=== PATIENT | female | born 1970 ===

== ENCOUNTER 2016-08-20 17:01 | Emergency (ER) | payer OTHER ==
--- NOTE | 2016-08-20 17:27 | ED PDOC ---
Arrival/HPI - General Time Seen by Provider: 08/20/16 17:25 Historian: Patient - History of Present Illness Narrative History of Present Illness (Text): 08/20/16 17:26 This 46 yo female with pmh htn, migraines, presents to this ED exacerbation of migraines since this morning. Patient feels mild nauseous, and has vomited today. Patient denies abdominal pain, sob, cp, dysarthria, diplopia, dizziness , abnormal gait, diarrhea, or urinary symptoms. Time/Duration: Other (since this morning) Context: Home Past Medical History - Provider Review Nursing Documentation Reviewed: Yes Family/Social History - Physician Review Nursing Documentation Reviewed: Yes Family/Social History: No Known Family HX Allergies/Home Meds Allergies/Adverse Reactions: Allergies iodine Allergy (Verified 08/20/16 17:34) ANAPHYLAXIS seafood Allergy (Uncoded 08/20/16 17:34) ANAPHYLAXIS Home Medications: Home Meds Medication Instructions Recorded Confirmed Acetaminophen/Butalbital/Caf 08/20/16 [Fioricet] Atorvastatin [Lipitor] 08/20/16 Metoprolol Succinate [Metoprolol 08/20/16 Succinate] Ondansetron ODT [Zofran ODT] 08/20/16 Review of Systems - Review of Systems Constitutional: Normal. absent: Fatigue, Weight Change, Fevers, Night Sweats Eyes: Photophobia. absent: Vision Changes, Eye Pain ENT: Normal. absent: Sore Throat, Rhinorrhea Respiratory: Normal. absent: SOB, Cough, Sputum, Wheezing Cardiovascular: Normal. absent: Chest Pain, Palpitations Gastrointestinal: Nausea, Vomiting. absent: Abdominal Pain Genitourinary Female: Normal. absent: Dysuria, Frequency, Hematuria, Vaginal Bleeding, Vaginal Discharge Musculoskeletal: Normal. absent: Back Pain Skin: Normal. absent: Rash Neurological: Headache. absent: Dizziness, Focal Weakness, Gait Changes, Speech Changes, Facial Droop, Disequilibrium, Seizure Endocrine: Normal Hemo/Lymphatic: Normal Psychiatric: Normal Physical Exam Vital Signs Temp Pulse Resp BP Pulse Ox 08/20/16 19:57 98.6 F 78 18 148/82 99 08/20/16 19:23 98.6 F 87 20 152/75 H 98 08/20/16 17:39 98.1 F 74 17 169/99 H 97 Temperature: Afebrile Blood Pressure: Hypertensive Pulse: Regular Respiratory Rate: Normal Appearance: Positive for: Well-Appearing, Non-Toxic, Comfortable Pain Distress: None Mental Status: Positive for: Alert and Oriented X 3 - Systems Exam Head: Present: Atraumatic, Normocephalic Pupils: Present: PERRL Extroacular Muscles: Present: EOMI Conjunctiva: Present: Normal Mouth: Present: Moist Mucous Membranes Pharnyx: Present: Normal. No: ERYTHEMA, EXUDATE, TONSILS ENLARGED Neck: Present: Normal Range of Motion. No: Meningeal Signs, Lymphadenopathy Respiratory/Chest: Present: Clear to Auscultation, Good Air Exchange. No: Respiratory Distress, Accessory Muscle Use, Wheezes, Retracting, Rhonchi Cardiovascular: Present: Regular Rate and Rhythm, Normal S1, S2. No: Murmurs Abdomen: Present: Normal Bowel Sounds. No: Tenderness, Distention, Peritoneal Signs, Rebound, Guarding Back: Present: Normal Inspection. No: CVA Tenderness Upper Extremity: Present: Normal Inspection, Normal ROM, NORMAL PULSES, Neurovascularly Intact, Capillary Refill < 2s. No: Cyanosis, Edema Lower Extremity: Present: Normal Inspection, Normal ROM, Neurovascularly Intact , Capillary Refill < 2 s. No: Edema Neurological: Present: GCS=15, CN II-XII Intact, Speech Normal, Motor Func Grossly Intact, Normal Sensory Function, Normal Cerebellar Funct, Gait Normal, Memory Normal, Other (No neuro focal deficits) Skin: Present: Warm, Dry, Normal Color. No: Rashes Psychiatric: Present: Alert, Oriented x 3 Medical Decision Making ED Course and Treatment: 08/20/16 19:54 Re-evaluation. Patient feels better. Discussed results and plan with patient who expresses understanding. All questions answered and there is agreement with the plan to discharge home with instructions. Patient stable for discharge. Return if symptoms persist or worsen. Re-evaluation Time: 19:54 Reassessment Condition: Re-examined, Improved - Lab Interpretations Microbiology Results: Microbiology Results 08/20/16 18:00 Urine Urine Culture - Final Gram Positive Cocci Lab Results: 08/20/16 18:00 08/20/16 18:00 Lab Results 08/20/16 18:00: WBC 11.5 H, RBC 5.49, Hgb 14.0, Hct 42.2, MCV 76.9 L, MCH 25.5, MCHC 33.2, RDW 17.0 H, Plt Count 219, Gran % 89.6 H, Lymph % (Auto) 7.8 L, Sac % (Auto) 2.4, Eos % (Auto) 0.1 L, Baso % (Auto) 0.1, Gran # 10.27 H, Lymph # 0.9 L, Sac # 0.3, Eos # 0.0, Baso # 0.01, Sodium 134, Potassium 4.1, Chloride 100, Carbon Dioxide 23, Anion Gap 15, BUN 19, Creatinine 0.6, Est GFR ( Amer) > 60, Est GFR (Non-Af Amer) > 60, Random Glucose 131 H, Calcium 9.4, Total Bilirubin 0.6, AST 24, ALT 13, Alkaline Phosphatase 100, Total Protein 8.3 , Albumin 4.3, Globulin 4.0, Albumin/Globulin Ratio 1.1, Lipase 75, Urine Color Yellow, Urine Appearance Sl cloudy, Urine pH 6.0, Ur Specific [place] >= 1.030, Urine Protein 100 H, Urine Glucose (UA) Negative, Urine Ketones Trace H, Urine Blood Trace-intact H, Urine Nitrate Negative, Urine Bilirubin Negative, Urine Urobilinogen 1.0 H, Ur Leukocyte Esterase Negative, Urine RBC 0 - 2, Urine WBC Negative, Ur Epithelial Cells 10 - 12, Urine Bacteria Many I have reviewed the lab results: Yes Interpretation: No clinic. lab abnormalty - Medication Orders Current Medication Orders: Discontinued Medications Diphenhydramine HCl (Benadryl) 25 mg IVP STAT STA Stop: 08/20/16 17:42 Last Admin: 08/20/16 18:31 Dose: 25 MG IVP Administration Document 08/20/16 18:31 [facility] (Rec: 08/20/16 18:31 [place] [id number]) Charges for Administration # of IVP Administrations 1 Sodium Chloride (Sodium Chloride 0.9%) 1,000 mls @ 1,000 mls/hr IV .Q1H STA Stop: 08/20/16 18:37 Last Admin: 08/20/16 18:14 Dose: 1,000 MLS/HR eMAR Start Stop Document 08/20/16 18:14 [facility] (Rec: 08/20/16 18:16 [place] [id number]) Intravenous Solution Start Date 08/20/16 Start Time 18:16 Ketorolac Tromethamine (Toradol) 15 mg IVP STAT STA Stop: 08/20/16 17:39 Last Admin: 08/20/16 18:31 Dose: 15 MG IVP Administration Document 08/20/16 18:31 [facility] (Rec: 08/20/16 18:31 [facility] [id number]) Charges for Administration # of IVP Administrations 1 Metoclopramide HCl (Reglan) 10 mg IVP STAT STA Stop: 08/20/16 17:39 Last Admin: 08/20/16 18:24 Dose: 10 MG IVP Administration Document 08/20/16 18:24 [facility] (Rec: 08/20/16 18:31 [facility] [id number]) Charges for Administration # of IVP Administrations 1 Disposition/Present on Arrival - Present on Arrival Any Indicators Present on Arrival: No History of DVT/PE: No History of Uncontrolled Diabetes: No Urinary Catheter: No History of Decub. Ulcer: No - Disposition Have Diagnosis and Disposition been Completed?: Yes Diagnosis: Headache Disposition: HOME/ ROUTINE Disposition Time: 19:54 Patient Plan: Discharge Condition: GOOD Discharge Instructions (ExitCare): General Headache (ED) Additional Instructions: Call private doctor for follow up visit in 1-2 days. Take medication as instructed. Call neurologist for revaluation of headaches. return to emergency if symptoms worsen. Prescriptions: Acetaminophen/Butalbital/Caf [Fioricet] 1 tab PO Q4H PRN #12 tab PRN Reason: Headache Referrals: Markell Enriquez MD [Staff Provider] - Follow up with primary
[2016-08-20] MEDS ORDERED: Sodium Chloride 0.9% 1,000 ML IV STA (17:38)
[2016-08-20] MEDS ORDERED: DiphenhydrAMINE 50 mg/ml Inj IVP STA (17:41)
[2016-08-20 18:18] LABS: ADD MANUAL DIFF? NO
[2016-08-20 18:21] LABS: URINE BILIRUBIN NEGATIVE (NEGATIVE); URINE BLOOD TRACE-INTACT (NEGATIVE); URINE GLUCOSE (UA) NEGATIVE (NEGATIVE); URINE KETONE TRACE mg/dL (NEGATIVE); URINE LEUKOCYTE ESTERASE NEGATIVE Leu/uL (NEGATIVE); URINE PROTEIN 100 mg/dL (<30 mg/dL)
[2016-08-20 18:23] LABS: BASO # 0.01 K/mm3 (0.0-2.0); BASO % 0.1 % (0.0-3.0); EOS % 0.1 % (1.5-5.0); GRAN # 10.27 (1.4-6.5); GRAN % 89.6 % (50.0-68.0); HEMATOCRIT 42.2 % (36.0-48.0); LYMPH # 0.9 (1.2-3.4); LYMPH % 7.8 % (22.0-35.0); MEAN CELL VOLUME 76.9 fL (80.0-105.0); MEAN CORPUSCULAR HEMOGLOBIN 25.5 pg (25.0-35.0); MEAN CORPUSCULAR HGB CONC 33.2 g/dl (31.0-37.0); MONO # 0.3 (0.1-0.6); MONO % 2.4 % (1.0-6.0); PLATELET COUNT 219 10^3/uL (120.0-450.0); URINE APPEARANCE SL CLOUDY (CLEAR); URINE COLOR YELLOW (YELLOW); WHITE BLOOD COUNT 11.5 10^3/ul (4.5-11.0)
[2016-08-20 18:27] LABS: URINE BACTERIA MANY (NEG); URINE RBC 0 - 2 /hpf (0-2); URINE WBC NEGATIVE /hpf (0-6)
[2016-08-20 18:31] LABS: ALB/GLOB RATIO 1.1 (1.1-1.8); ALKALINE PHOSPHATASE 100 U/L (38-133); ALT/SGPT 13 U/L (7-56); AST/SGOT 24 U/L (15-39); BILIRUBIN,TOTAL 0.6 mg/dL (0.2-1.3); BLOOD UREA NITROGEN 19 mg/dL (7-21); CALCIUM 9.4 mg/dL (8.4-10.5); CARBON DIOXIDE 23 mmol/L (21-33); CHLORIDE 100 mmol/L (98-107); GFR AFRICAN-AMERICAN > 60; GLUCOSE,RANDOM 131 mg/dL (70-110); LIPASE 75 U/L (23-300); POTASSIUM 4.1 mmol/L (3.6-5.0); SODIUM 134 mmol/L (132-148); TOTAL PROTEIN 8.3 g/dL (5.8-8.3)
[2016-08-20 19:24] VITALS: TEMP 98.6
[2016-08-20 19:58] VITALS: BP 148/82; PULSE 78; RESP 18; O2SAT 99
== END 2016-08-20 20:44 | disposition home or self-care (01) ==
LOC: ED 17:01
DX: R51 Headache (principal); I10 Essential (primary) hypertension
CPT/HCPCS: 80053; 81001; 83690; 85025; 87086; 96374; 96375; 99284; J1200; J1885; J2765; J7040